=== PATIENT | female | born 1965 | race Two or more races ===

== ENCOUNTER → 2025-02-14 | Outpatient (CLI) | payer BC, SELFPAY ==
--- NOTE | 2025-02-14 08:45 | XR_ITS ---
Examination: Abdomen sonogram, Limited Date and time of exam: February 14, 2025 0835 hours INDICATIONS: Diagnosis alcoholic liver disease Technique: Real-time herbert scale transabdominal sonographic images of the upper abdomen obtained. Findings: Absent gallbladder Common bile duct 0.4 cm no stones Pancreatic head 2.1 cm Liver 15.7 cm no focal liver lesions fatty infiltration present Normal hepatopedal portal venous flow Patent IVC IMPRESSION: Normal common bile duct. Fatty liver no focal liver lesions
== END | disposition home or self-care (01) ==
PROVIDERS: PCP Specialist; Referring Provider Specialist; Visit Provider Specialist
DX: K76.0 Fatty (change of) liver, not elsewhere classified (principal)
CPT/HCPCS: 76705